=== PATIENT | male | born 1955 | race Caucasian/White ===

== ENCOUNTER 2019-06-24 11:23 | Emergency (ER) | payer OTHER ==
[~2019-06-24] VITALS: Ht 180.3 cm; Wt 134.1 kg
[2019-06-24] MEDS ORDERED: VASOTEC20 M1 PO (11:31)
[2019-06-24] MEDS ORDERED: HCTZ 25MG25 MG PO (11:31)
[2019-06-24] MEDS ORDERED: ATORVASTATIN CA10 MG PO (11:31)
[2019-06-24] MEDS ORDERED: ASPIRIN E.C. 8181 MG (11:31)
[2019-06-24] MEDS ORDERED: JARDIANCE25 MG PO (11:32)
[2019-06-24] MEDS ORDERED: METFORMIN HYD1000 MG PO (11:32)
[2019-06-24] MEDS ORDERED: PAXIL20 M1 PO (11:32)
[2019-06-24] MEDS ORDERED: PIOGLITAZONE HY45 MG PO (11:33)
[2019-06-24] MEDS ORDERED: REPAGLINIDE2 MG PO (11:33)
[2019-06-24] MEDS ORDERED: NORCO 325 MG-51 TA1 PO (13:14)
[2019-06-24 13:23] VITALS: BP 108/88
== END 2019-06-24 13:21 | disposition home or self-care (01) ==
LOC: ED 11:23
DX: S22.31XA Fracture of one rib, right side, initial encounter for closed fracture (principal); E11.9 Type 2 diabetes mellitus without complications; E78.5 Hyperlipidemia, unspecified; Z79.82 Long term (current) use of aspirin; Z79.84 Long term (current) use of oral hypoglycemic drugs; W00.9XXA Unspecified fall due to ice and snow, initial encounter
CPT/HCPCS: J3010

== ENCOUNTER → 2020-04-15 | Outpatient (CLI) | payer MEDICARE ==
[~2020-04-15] MED LIST: ASPIRIN E.C. 8181 MG; ATORVASTATIN CA10 MG PO; HCTZ 25MG25 MG PO; JARDIANCE25 MG PO; METFORMIN HYD1000 MG PO; NORCO 325 MG-51 TA1 PO; PAXIL20 M1 PO; PIOGLITAZONE HY45 MG PO; REPAGLINIDE2 MG PO; VASOTEC20 M1 PO
[2020-04-15 07:58] LABS: POTASSIUM 3.9 mmol/L (3.5-5.1)
[2020-04-15 07:59] LABS: CALCIUM 9.1 mg/dL (8.3-10.5)
== END ==
LOC: RAD 07:37
PROVIDERS: Physician Assistant
DX: N28.9 Disorder of kidney and ureter, unspecified (principal); K76.0 Fatty (change of) liver, not elsewhere classified; K80.20 Calculus of gallbladder without cholecystitis without obstruction; R91.1 Solitary pulmonary nodule; E11.9 Type 2 diabetes mellitus without complications; R06.02 Shortness of breath
CPT/HCPCS: Q9965; Q9967

== ENCOUNTER → 2020-05-04 | Outpatient (CLI) | payer MEDICARE, OTHER | LOC: RAD 11:41 | DX: M25.512 Pain in left shoulder (principal); M25.521 Pain in right elbow ==

== ENCOUNTER 2020-06-06 09:52 | Outpatient (RCR) | payer MEDICARE | END 2020-06-06 10:30 | LOC: PT | DX: M25.512 Pain in left shoulder (principal) ==

== ENCOUNTER 2020-06-10 10:00 | Outpatient (RCR) | payer MEDICARE, OTHER | END 2020-09-08 | disposition home or self-care (01) | LOC: PT | DX: M25.512 Pain in left shoulder (principal) ==

== ENCOUNTER → 2020-07-08 | Outpatient (CLI) | payer MEDICARE ==
[2020-07-08 11:39] LABS: HEMATOCRIT 45.7 % (42.0-52.0); HEMOGLOBIN 14.9 g/dL (13.5-18.0); MEAN CELL VOLUME 90 fl (78-100); MEAN CORPUSCULAR HEMOGLOBIN 29 pg (27-31); MEAN CORPUSCULAR HGB CONC 33 g/dL (33-37); MEAN PLATELET VOLUME 9.9 fl (7.4-10.4); PLATELET COUNT 225 K/mm3 (130-400); RED BLOOD COUNT 5.07 M/mm3 (4.20-5.60); RED CELL DISTRIBUTION WIDTH 13.4 % (11.5-14.5); WHITE BLOOD COUNT 6.1 K/mm3 (4.8-10.8)
[2020-07-08 11:48] LABS: CALCIUM 9.8 mg/dL (8.3-10.5)
[2020-07-08 11:50] LABS: TOTAL PROTEIN 6.6 g/dL (6.2-8.1)
[2020-07-08 12:06] LABS: LYMPHOCYTE 38 % (20-51); MONOCYTE 12 % (3-10); NEUTROPHILS 48 % (42-75)
== END ==
LOC: LAB 11:16
PROVIDERS: Physician Assistant
DX: Z00.00 Encounter for general adult medical examination without abnormal findings (principal); Z12.5 Encounter for screening for malignant neoplasm of prostate; Z13.29 Encounter for screening for other suspected endocrine disorder; E11.9 Type 2 diabetes mellitus without complications; E78.5 Hyperlipidemia, unspecified

== ENCOUNTER → 2020-08-16 | Outpatient (CLI) | payer MEDICARE, OTHER | LOC: MAMMO 14:15 | DX: Z13.820 Encounter for screening for osteoporosis (principal); M81.0 Age-related osteoporosis without current pathological fracture ==

== ENCOUNTER → 2021-01-05 | Outpatient (CLI) | payer MEDICARE ==
[2021-01-05 11:29] LABS: BASO # 0.05 (0.02-0.10); EOS # 0.42 (0.04-0.40); EOS % 5.9 % (0.0-4.0); HEMATOCRIT 45.2 % (42.0-52.0); HEMOGLOBIN 14.5 g/dL (13.5-18.0); LYMPH# 2.19 (1.50-4.00); MEAN CELL VOLUME 93 fl (78-100); MEAN CORPUSCULAR HEMOGLOBIN 30 pg (27-31); MEAN CORPUSCULAR HGB CONC 32 g/dL (33-37); MEAN PLATELET VOLUME 9.3 fl (7.4-10.4); MONO # 0.83 (0.20-0.80); NEU # 3.64 (1.40-6.50); PLATELET COUNT 256 K/mm3 (130-400); RED BLOOD COUNT 4.88 M/mm3 (4.20-5.60); RED CELL DISTRIBUTION WIDTH 13.3 % (11.5-14.5); WHITE BLOOD COUNT 7.1 K/mm3 (4.8-10.8)
[2021-01-05 11:40] LABS: POTASSIUM 4.2 mmol/L (3.5-5.1)
[2021-01-05 11:41] LABS: CALCIUM 9.5 mg/dL (8.3-10.5)
[2021-01-05 11:42] LABS: TOTAL PROTEIN 6.7 g/dL (6.2-8.1)
[2021-01-05 11:43] LABS: PROTHROMBIN TIME 9.7 SECONDS (9.0-12.0)
[2021-01-05 11:44] LABS: TOTAL BILIRUBIN 0.8 mg/dL (0.2-1.2)
[2021-01-05 11:46] LABS: URINE APPEARANCE CLEAR; URINE BILIRUBIN NEGATIVE (NEGATIVE); URINE BLOOD NEGATIVE (NEGATIVE); URINE COLOR YELLOW; URINE GLUCOSE NEGATIVE (NEGATIVE); URINE KETONE NEGATIVE (NEGATIVE); URINE LEUKOCYTE ESTERASE NEGATIVE (NEGATIVE); URINE NITRATE NEGATIVE (NEGATIVE); URINE PROTEIN(semi-quant) TRACE mg/dL (NEGATIVE); URINE UROBILINOGEN NORMAL (NORMAL); URINE WBC 0-1 /hpf (0-3)
== END ==
LOC: LAB 11:11
PROVIDERS: Physician Assistant
DX: Z01.812 Encounter for preprocedural laboratory examination (principal); E11.9 Type 2 diabetes mellitus without complications

== ENCOUNTER 2021-01-17 11:16 | Outpatient (RCR) | payer MEDICARE, OTHER | END 2021-04-17 | LOC: PT | DX: M25.512 Pain in left shoulder (principal) ==

== ENCOUNTER → 2021-06-09 | Outpatient (CLI) | payer MEDICARE, OTHER | LOC: LAB 12:05 | DX: Z20.822 Contact with and (suspected) exposure to COVID-19 (principal) ==

== ENCOUNTER → 2021-07-19 | Outpatient (CLI) | payer MEDICARE ==
[2021-07-19 15:34] LABS: BASO # 0.07 K/mm3 (0.02-0.10); EOS # 0.21 K/mm3 (0.04-0.40); EOS % 2.4 % (0.0-4.0); HEMATOCRIT 45.2 % (42.0-52.0); HEMOGLOBIN 15.3 g/dL (13.5-18.0); LYMPH# 2.31 K/mm3 (1.50-4.00); MEAN CELL VOLUME 90 fl (78-100); MEAN CORPUSCULAR HEMOGLOBIN 31 pg (27-31); MEAN CORPUSCULAR HGB CONC 34 g/dL (33-37); MEAN PLATELET VOLUME 9.1 fl (7.4-10.4); MONO # 0.86 K/mm3 (0.20-0.80); NEU # 5.32 K/mm3 (1.40-6.50); PLATELET COUNT 298 K/mm3 (130-400); RED BLOOD COUNT 5.01 M/mm3 (4.20-5.60); RED CELL DISTRIBUTION WIDTH 13.5 % (11.5-14.5); WHITE BLOOD COUNT 8.8 K/mm3 (4.8-10.8)
[2021-07-19 15:44] LABS: ALBUMIN 4.1 g/dL (3.4-4.8)
[2021-07-19 15:45] LABS: CALCIUM 10.1 mg/dL (8.3-10.5)
[2021-07-19 15:48] LABS: TOTAL BILIRUBIN 0.8 mg/dL (0.2-1.2)
== END ==
LOC: LAB 14:57
PROVIDERS: Physician Assistant
DX: Z00.00 Encounter for general adult medical examination without abnormal findings (principal); Z12.5 Encounter for screening for malignant neoplasm of prostate; Z23 Encounter for immunization; Z13.29 Encounter for screening for other suspected endocrine disorder; I10 Essential (primary) hypertension; E78.5 Hyperlipidemia, unspecified; E11.9 Type 2 diabetes mellitus without complications; M81.0 Age-related osteoporosis without current pathological fracture; G47.30 Sleep apnea, unspecified

== ENCOUNTER → 2021-08-18 | Outpatient (CLI) | payer MEDICARE | LOC: RAD 13:12 | DX: M54.50 Low back pain, unspecified (principal); M53.3 Sacrococcygeal disorders, not elsewhere classified; W19.XXXA Unspecified fall, initial encounter ==

== ENCOUNTER 2023-07-28 11:49 | Emergency (ER) | payer MEDICARE ==
[~2023-07-28] VITALS: Ht 180.3 cm; Wt 125.5 kg
[~2023-07-28 11:49] MED LIST changes: +ALENDRONATE SOD70 MG PO; +AMITRIPTYLINE H25 M2 PO; +DESYREL50 MG PO; +TRULICITY3 MG/0.5 M SQ; +VENLAFAXINE HCL75 M3 PO; +VITAMIN D350 MCG PO
[2023-07-28] MEDS ORDERED: OXYCODONE-ACET1 EAC1 PO (11:58)
[2023-07-28 13:53] VITALS: BP 129/72
== END 2023-07-28 13:55 | disposition home or self-care (01) ==
LOC: ED 11:49
DX: S05.11XA Contusion of eyeball and orbital tissues, right eye, initial encounter (principal); W18.30XA Fall on same level, unspecified, initial encounter; W22.8XXA Striking against or struck by other objects, initial encounter; Y92.009 Unspecified place in unspecified non-institutional (private) residence as the place of occurrence of the external cause

== ENCOUNTER → 2023-10-25 | Outpatient (CLI) | payer MEDICARE ==
[~2023-10-25] MED LIST changes: +OXYCODONE-ACET1 EAC1 PO
[2023-12-02 09:08] LABS: ALBUMIN 4.3 g/dL (3.4-4.8); CALCIUM 10.3 mg/dL (8.3-10.5); TOTAL BILIRUBIN 1.1 mg/dL (0.2-1.2); TOTAL PROTEIN 6.8 g/dL (6.2-8.1)
[2023-12-02 09:32] LABS: BASO # 0.03 K/mm3 (0.02-0.10); EOS # 0.36 K/mm3 (0.04-0.40); EOS % 5.2 % (0.0-4.0); HEMATOCRIT 45.4 % (42.0-52.0); LYMPH# 1.71 K/mm3 (1.50-4.00); MEAN CELL VOLUME 90 fl (78-100); MEAN CORPUSCULAR HEMOGLOBIN 30 pg (27-31); MEAN CORPUSCULAR HGB CONC 33 g/dL (33-37); MEAN PLATELET VOLUME 9.4 fl (7.4-10.4); MONO # 0.75 K/mm3 (0.20-0.80); NEU # 4.06 K/mm3 (1.40-6.50); PLATELET COUNT 258 K/mm3 (130-400); RED BLOOD COUNT 5.05 M/mm3 (4.20-5.60); RED CELL DISTRIBUTION WIDTH 13.3 % (11.5-14.5); WHITE BLOOD COUNT 6.9 K/mm3 (4.8-10.8)
== END ==
LOC: RAD 11:49
PROVIDERS: Physician Assistant
DX: M51.17 Intervertebral disc disorders with radiculopathy, lumbosacral region (principal); M43.17 Spondylolisthesis, lumbosacral region; M16.0 Bilateral primary osteoarthritis of hip

== ENCOUNTER → 2024-03-27 | Outpatient (CLI) | payer MEDICARE ==
[2024-03-27 11:47] LABS: ALBUMIN 4.3 g/dL (3.4-4.8)
[2024-03-27 11:49] LABS: CALCIUM 9.7 mg/dL (8.3-10.5)
[2024-03-27 11:50] LABS: TOTAL PROTEIN 6.8 g/dL (6.2-8.1)
[2024-03-27 11:52] LABS: TOTAL BILIRUBIN 0.9 mg/dL (0.2-1.2)
[2024-03-27 23:23] LABS: CREATININE OTHER SOURCE 45 mg/dL (47-110)
== END ==
LOC: LAB 11:25
PROVIDERS: Nurse Practitioner
DX: E11.69 Type 2 diabetes mellitus with other specified complication (principal); E66.9 Obesity, unspecified

== ENCOUNTER → 2024-07-28 | Outpatient (CLI) | payer MEDICARE ==
[2024-07-28 10:08] LABS: BASO # 0.03 K/mm3 (0.02-0.10); EOS % 4.7 % (0.0-4.0); HEMATOCRIT 46.2 % (42.0-52.0); HEMOGLOBIN 15.2 g/dL (13.5-18.0); LYMPH# 1.91 K/mm3 (1.50-4.00); MEAN CELL VOLUME 90 fl (78-100); MEAN CORPUSCULAR HEMOGLOBIN 30 pg (27-31); MEAN CORPUSCULAR HGB CONC 33 g/dL (33-37); MEAN PLATELET VOLUME 8.8 fl (7.4-10.4); MONO # 0.82 K/mm3 (0.20-0.80); NEU # 3.25 K/mm3 (1.40-6.50); PLATELET COUNT 265 K/mm3 (130-400); RED BLOOD COUNT 5.12 M/mm3 (4.20-5.60); WHITE BLOOD COUNT 6.3 K/mm3 (4.8-10.8)
== END ==
LOC: LAB 09:56
PROVIDERS: Nurse Practitioner
DX: E11.69 Type 2 diabetes mellitus with other specified complication (principal); E66.9 Obesity, unspecified